=== PATIENT | male | born 1970 | race Caucasian/White ===

== ENCOUNTER 2017-04-17 19:57 | Emergency (ER) | payer SELFPAY ==
[~2017-04-17 19:57] MED LIST: SULF1TAB47 PO; Z.0.NO CURRENT MEDS
[2017-04-17 20:07] VITALS: BP 129/83; PULSE 92; RESP 15; TEMP 98.2; O2SAT 97
[2017-04-17 21:27] VITALS: BP 134/79; PULSE 80; RESP 20; O2SAT 100
[2017-04-17] MEDS ORDERED: FLUO-1 PO (21:33)
[2017-04-17] MEDS ORDERED: HYDR50CA PO (21:33)
[2017-04-17] MEDS ORDERED: OLAN10TA PO (21:33)
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
[2017-04-17] MEDS ORDERED: MOBI15TA PO ×2 (23:40→23:43)
[2017-04-18 00:18] VITALS: BP 122/76
== END 2017-04-18 00:35 | disposition home or self-care (01) ==
LOC: NEPC 19:57
DX: S02.2XXA Fracture of nasal bones, initial encounter for closed fracture (principal); S00.81XA Abrasion of other part of head, initial encounter; M25.522 Pain in left elbow; M54.5 Low back pain; F20.9 Schizophrenia, unspecified; G62.9 Polyneuropathy, unspecified; G40.909 Epilepsy, unspecified, not intractable, without status epilepticus; F17.200 Nicotine dependence, unspecified, uncomplicated; Y04.8XXA Assault by other bodily force, initial encounter
CPT/HCPCS: 70450; 70486; 72100; 73080